=== PATIENT | male | born 1965 | race Caucasian/White ===

== ENCOUNTER 2018-11-30 02:48 | Emergency (ER) | payer SELFPAY ==
[2018-11-30 03:21] LABS: BASOPHILS % (AUTO) 0.4 %; EOSINOPHILS # (AUTO) 0.1 10^3/uL (0.0-0.7); EOSINOPHILS % (AUTO) 0.7 %; HGB - HEMOGLOBIN 16.6 g/dL (14.0-18.0); LYMPHOCYTES # (AUTO) 2.3 10^3/uL (1.5-3.5); LYMPHOCYTES % (AUTO) 28.1 %; MEAN CORPUSCULAR HEMOGLOBIN 30.5 pg (27.0-31.0); MEAN CORPUSCULAR HGB CONC 33.7 g/dL (32.0-36.0); MEAN CORPUSCULAR VOLUME 90.4 fL (80.0-94.0); MEAN PLATELET VOLUME 9.6 fL (7.4-11.4); MONOCYTES # (AUTO) 0.6 10^3/uL (0.0-1.0); MONOCYTES % (AUTO) 7.1 %; NEUTROPHILS # (AUTO) 5.1 10^3/uL (1.5-6.6); NEUTROPHILS % (AUTO) 63.5 %; PLT - PLATELET COUNT 237 10^3/uL (130-450); RED BLOOD COUNT 5.44 10^6/uL (4.70-6.10); RED CELL DISTRIBUTION WIDTH 13.2 % (12.0-15.0); WHITE BLOOD COUNT 8.1 x10^3/uL (4.8-10.8)
[2018-11-30 03:33] LABS: ALBUMIN 4.4 g/dL (3.2-5.5); ALBUMIN/GLOBULIN RATIO 1.3 (1.0-2.2); BILIRUBIN,TOTAL 0.5 mg/dL (0.2-1.0); CALCIUM 9.2 mg/dL (8.5-10.3); TOTAL PROTEIN 7.8 g/dL (6.7-8.2)
--- NOTE | 2018-11-30 04:18 | XRAY Report ---
Reason: cough with blood, chest pressure Procedure Date: 11/30/2018 Accession Number: [id number] / [id number] Procedure: XR - Chest 1 View X-Ray CPT Code: 23514 FULL RESULT: EXAM: CHEST RADIOGRAPHY EXAM DATE: 11/30/2018 04:00 AM. CLINICAL HISTORY: Cough with blood, chest pressure. COMPARISON: None. TECHNIQUE: 1 view. FINDINGS: Lungs/Pleura: No focal opacities evident. No pleural effusion. No pneumothorax. Mediastinum: Within exam limitations, the cardiomediastinal contour is normal. Other: None. IMPRESSION: Negative single view chest. RADIA
--- NOTE | 2018-11-30 05:02 | ED Physician Documentation ---
PD HPI URI - Stated complaint Stated Complaint: COUGHING UP BLOOD - Chief complaint Chief Complaint: Cardiac - History obtained from History obtained from: Patient - History of Present Illness Timing - onset: Today (he is visiting relative who has cats and he has had marked wheezing and cough, with exac of asthma. Minimal improved with inhaler. Is feeling some better after being out of that house. Is concerned that he coughed hard and had some hemoptysis.) Timing duration: Days (1) Timing details: Abrupt onset Associated symptoms: Dry cough, Hemoptysis (once with coughing hard), Chest pain (hurting to cough), Dyspnea. No: Fever, Chills, Productive cough, Bilateral edema Contributing factors: COPD / asthma. No: Sick contact Similar symptoms before: Diagnosis (asthma exac and is allergic to animals.) Review of Systems Constitutional: denies: Fever, Chills, Myalgias Nose: denies: Rhinorrhea / runny nose, Congestion Throat: denies: Sore throat Cardiac: denies: Chest pain / pressure Respiratory: reports: Dyspnea, Cough, Wheezing GI: denies: Nausea, Vomiting Skin: denies: Rash, Lesions PD PAST MEDICAL HISTORY - Past Medical History Cardiovascular: Hypertension (had been on HTN med but had been better, so off meds) Respiratory: Asthma Neuro: None Endocrine/Autoimmune: None - Present Medications Home Medications: Ambulatory Orders Medication Instructions Recorded Confirmed Albuterol Sulf [Ventolin Hfa 1 - 2 puffs INH Q4HR PRN #1 inhaler 11/30/18 Inhaler] Lisinopril 20 mg PO DAILY #30 tablet 11/30/18 dexAMETHasone [Decadron] 4 mg PO DAILY #7 tablet 11/30/18 - Allergies Allergies/Adverse Reactions: Allergies Allergy/AdvReac Type Severity Reaction Status Date / Time No Known Drug Allergies Allergy Verified 11/30/18 03:05 PD ED PE NORMAL - Vitals Vital signs reviewed: Yes - General General: Alert and oriented X 3, Well developed/nourished - HEENT HEENT: Pharynx benign - Neck Neck: Supple, no meningeal sign, No adenopathy - Cardiac Cardiac: RRR, No murmur - Respiratory Respiratory: No: Clear bilaterally (some exp wheezing diffusely. No coarse sounds. ) - Derm Derm: Normal color, Warm and dry - Extremities Extremities: No edema, No calf tenderness / cord Results - Vitals Vitals: Oxygen O2 Source Room air - Labs Labs: Laboratory Tests 11/30/18 11/30/18 03:16 03:16 WBC 8.1 RBC 5.44 Hgb 16.6 Hct 49.2 MCV 90.4 MCH 30.5 MCHC 33.7 RDW 13.2 Plt Count 237 MPV 9.6 Neut # (Auto) 5.1 Lymph # (Auto) 2.3 Hall # (Auto) 0.6 Eos # (Auto) 0.1 Baso # (Auto) 0.0 Absolute Nucleated RBC 0.00 Nucleated RBC % 0.0 Sodium 139 Potassium 3.6 Chloride 102 Carbon Dioxide 26 Anion Gap 11.0 BUN 19 Creatinine 1.0 Estimated GFR (MDRD) 78 L Glucose 115 H Calcium 9.2 Total Bilirubin 0.5 AST 21 ALT 30 Alkaline Phosphatase 83 Total Protein 7.8 Albumin 4.4 Globulin 3.4 Albumin/Globulin Ratio 1.3 Lipase 26 - Rads (name of study) chest xray Radiology: Prelim report reviewed (no infiltrates nor acute process), See rad report PD MEDICAL DECISION MAKING - ED course Complexity details: reviewed results, considered differential (cough with asthma exac due to environmental allergen. CXR is clear. Does not sound infectious. ), d/w patient Departure - Departure Disposition: 01 Home, Self Care Clinical Impression: Hemoptysis High blood pressure Qualifiers: Hypertension type: essential hypertension Qualified Code(s): I10 - Essential (primary) hypertension Asthma exacerbation Qualifiers: Asthma severity: mild Asthma persistence: intermittent Qualified Code(s): J45.21 - Mild intermittent asthma with (acute) exacerbation Condition: Stable Record reviewed to determine appropriate education?: Yes Instructions: ED Bronchitis Asthmatic Prescriptions: Albuterol Sulf [Ventolin Hfa Inhaler] 1 - 2 puffs INH Q4HR PRN #1 inhaler PRN Reason: Shortness Of Air/Wheezing dexAMETHasone [Decadron] 4 mg PO DAILY #7 tablet Lisinopril 20 mg PO DAILY #30 tablet Comments: Your blood count and chest x-ray are normal. Bleeding from the lung or pneumonia. It sounds like a small blood vessel popped in your bronchials related to the coughing hard. This should be transient and improve. There may be slight blood with coughing for a day or 2 but it should not be significant. Use albuterol inhaler 2 puffs 4 times a day for the next few days and extra times as needed. Use Decadron steroid for the inflammation of the airways daily for several days to week. Resume your lisinopril. Recheck if not improved well over the next several days and return if worsening trouble breathing fevers purulent sputum or persistent blood with coughing. Discharge Date/Time: 11/30/18 05:29
[2018-11-30 05:17] VITALS: BP 164/111
[2018-11-30] MEDS ORDERED: diphenhydrAMINE ELIXIR 25 MG/10 ML UDC PO STA (05:17)
[2018-11-30] MEDS ORDERED: DEXAMETHASONE 10 MG/ML VIAL PO STA (05:17)
[2018-11-30] MEDS ORDERED: CHERRY SYRUP 10 ML UDC PO ONE (05:17)
== END 2018-11-30 05:29 | disposition home or self-care (01) ==
LOC: ED 02:48
DX: J45.21 Mild intermittent asthma with (acute) exacerbation (principal); R04.2 Hemoptysis; I10 Essential (primary) hypertension; Z91.09 Other allergy status, other than to drugs and biological substances
CPT/HCPCS: 36415; 71045; 80053; 83690; 85025; 93005; 99283; A9270